=== PATIENT | male | born 1950 | race Caucasian/White ===

== ENCOUNTER 2020-07-31 20:26 | Inpatient (IN) ==
[2020-08-01] MEDS ORDERED: Naloxone 0.4 MG/ML INJ IVP PRN (01:34)
[2020-08-01] MEDS ORDERED: Ondansetron 4 MG/2 ML VIAL IVP PRN (01:34)
[2020-08-01] MEDS ORDERED: 0.9 % Sodium Chloride 1,000 ML IVC SCH (01:45)
[2020-08-01 03:17] LABS: Basophils % 0.1 %; Hematocrit 43.3 % (37.5-50.1); Hemoglobin 13.3 g/dL (12.9-16.9); Immature Granulocytes % 0.9 % (0-4); Lymphocytes # 0.3 K/mcL (0.6-4.6); Lymphocytes % 1.1 %; Mean Corpuscular HGB Conc 30.7 g/dL (31.6-35.5); Mean Corpuscular Hemoglobin 29.9 pg (28.0-33.3); Mean Corpuscular Volume 97.3 fL (83.0-100.0); Mean Platelet Volume 9.8 fL (9.4-12.4); Monocytes # 0.2 K/mcL (0.0-1.3); Monocytes % 0.8 %; Platelet Count 124 K/mcL (140-400); Red Blood Count 4.45 M/mcL (4.19-5.50); Red Cell Distribution Width 13.4 % (11.5-14.5); Segmented Neutrophils % 97.1 %; White Blood Count 23.1 K/mcL (4.3-11.1)
[2020-08-01 03:22] LABS: Neutrophils # 22.4 K/mcL (1.6-8.9)
[2020-08-01 03:24] LABS: INR 1.3; Prothrombin Time 14.4 Seconds (9.4-12.1)
[2020-08-01 03:27] LABS: Activated Partial Thrombo Time 25.5 Seconds (26.0-36.0)
[2020-08-01 03:32] LABS: Albumin 3.5 g/dL (3.5-5.7); Albumin/Globulin Ratio 1.5 (1.1-2.2); Bilirubin,Total 1.3 mg/dL (0.3-1.0); Calcium 7.6 mg/dL (8.6-10.3); Globulin 2.4 g/dL (2.4-3.5); Potassium 5.2 mEq/L (3.5-5.1); Total Protein 5.9 g/dL (6.4-8.9); Troponin I 0.03 ng/mL (< 0.04)
[2020-08-01 03:44] LABS: Thyroid Stimulating Hormone 1.203 mcIU/mL (0.340-5.600)
[2020-08-01 04:03] LABS: Platelet Estimate Normal (Normal)
[2020-08-01] MEDS ORDERED: Azithromycin 500 MG in 0.9 % Sodium Chloride 250 ML IVPB SCH (05:00)
[2020-08-01 06:52] LABS: Bilirubin,Urine Negative (Negative); Blood,Urine Trace (Negative); Clarity,Urine Clear (Clear); Color,Urine Yellow (Yellow); Glucose,Urine (UA) Normal (Normal); Ketones,Urine Negative (Negative); Leukocyte Esterase,Urine Negative (Negative); Mucus,Urine Few per lpf (None-Few); Nitrite,Urine Negative (Negative); PH,Urine 5.5 pH Units (5.0-8.0); Protein,Urine Trace mg/dL (Neg-Trace); RBC,Urine 0-3 per hpf (0-3); Specific Gravity,Urine 1.029 (1.010-1.025); Urobilinogen,Urine Normal (Normal); WBC,Urine 0-3 per hpf (0-3)
[2020-08-01] MEDS: Ipratropium/Albuterol Neb 3 ML IH SCH ×4 (07:36→20:13)
[2020-08-01] MEDS ORDERED: Piperacillin/Tazobactam 3.375 GM in 0.9 % Sodium Chloride Mini Bag 100 ML IVPB SCH (08:00)
[2020-08-01 11:43] LABS: Adenovirus F 40/41 PCR Not detected (Not detect); Astrovirus PCR Not detected (Not detect); Campylobacter by PCR Not detected (Not detect); Cryptosporidium by PCR Not detected (Not detect); Cyclospora cayetanensis PCR Not detected (Not detect); E. coli O157 by PCR Not detected (Not detect); Entamoeba histolytica PCR Not detected (Not detect); Enteroaggregative E.coli(EAEC) Not detected (Not detect); Enteropathogenic E.coli(EPEC) Not detected (Not detect); Enterotoxigenic E.coli (ETEC) Not detected (Not detect); Giardia lamblia PCR Not detected (Not detect); Norovirus GI/GII PCR DETECTED (Not detect); Plesiomonas shigelloides PCR Not detected (Not detect); Rotavirus A PCR Not detected (Not detect); Salmonella PCR Not detected (Not detect); Sapovirus PCR Not detected (Not detect); Shig/EnteroinvasiveE coli EIEC Not detected (Not detect); Shigalike tox-prod E coli STEC Not detected (Not detect); Vibrio PCR Not detected (Not detect); Vibrio cholerae PCR Not detected (Not detect); Yersinia enterocolitica PCR Not detected (Not detect)
[2020-08-01 11:44] LABS: C.difficile Toxin A/B Gene PCR DETECTED (Not detect)
[2020-08-01] MEDS ORDERED: Ringers Solution, Lactated 1,000 ML IVC ONE (11:51)
[2020-08-01] MEDS ORDERED: Vancomycin Oral Soln 125 MG/2.5 ML UDC PO SCH (11:52)
[2020-08-01] MEDS ORDERED: Ringers Solution, Lactated 1,000 ML IVC SCH (12:00)
[2020-08-01] MEDS ORDERED: MethylPREDNISolone 40 MG/ML VIAL IVP SCH (12:00)
[2020-08-01 12:20] LABS: Adenovirus Not Detected (Not Detect); Bordetella Pertussis Not Detected (Not Detect); Chlamydophila pneumoniae Not Detected (Not Detect); Coronavirus 229E Not Detected (Not Detect); Coronavirus HKU1 Not Detected (Not Detect); Coronavirus NL63 Not Detected (Not Detect); Coronavirus OC43 Not Detected (Not Detect); Human Metapneumovirus Not Detected (Not Detect); Human Rhinovirus/Enterovirus Not Detected (Not Detect); Influenza A Subtype 2009 H1 Not Detected (Not Detect); Influenza B Not Detected (Not Detect); Mycoplasma pneumoniae Not Detected (Not Detect); Parainfluenza Virus 1 Not Detected (Not Detect); Parainfluenza Virus 2 Not Detected (Not Detect); Parainfluenza Virus 3 Not Detected (Not Detect); Parainfluenza Virus 4 Not Detected (Not Detect); Respiratory Syncytial Virus Not Detected (Not Detect); SARS-CoV-2 Not Detected (Not Detect)
[2020-08-01] MEDS ORDERED: *HR* OxyCODONE/APAP 5/325 TABLET PO ONE (12:58)
[2020-08-01] MEDS: Vancomycin Oral Soln 125 MG/2.5 ML UDC PO SCH ×3 (13:02→21:25)
[2020-08-01] MEDS: Pantoprazole 40 MG VIAL IVP SCH (13:42)
[2020-08-01] MEDS ORDERED: Metoprolol XL (24 HR) Succ 25 MG TAB.ER.24H PO ONE (15:13)
[2020-08-01] MEDS: *HR* Metoprolol 5 MG/5 ML VIAL IVP PRN (16:48)
[2020-08-01] MEDS ORDERED: Apixaban 5 MG TABLET PO ONE (17:00)
[2020-08-01] MEDS ORDERED: Perflutren Lipid Microsphere 1.3 ML in 0.9 % Sodium Chloride 8.7 ML IVP PRN (17:37)
[2020-08-01] MEDS: Budesonide/Formoterol 160/4.5 1 PUFF INH IH SCH (20:13)
[2020-08-01] MEDS: MethylPREDNISolone 40 MG/ML VIAL IVP SCH (21:24)
[2020-08-01] MEDS: Acetaminophen 325 MG TABLET PO PRN (21:25)
[2020-08-01] MEDS: Metoprolol XL (24 HR) Succ 50 MG TAB.ER.24H PO SCH (21:25)
[2020-08-01] MEDS: Mirtazapine 15 MG TABLET PO SCH (21:25)
[2020-08-02] MEDS: Levalbuterol Neb 1.25 MG/3 ML IH SCH ×7 (00:02→23:25)
[2020-08-02] MEDS ORDERED: *HR* Heparin 5,000 UNIT/ML VIAL IVP PRN (05:10)
[2020-08-02] MEDS ORDERED: Heparin 25,000UNIT/250ML 1/2NS 25,000 UNIT/250 ML IV.SOLN IVC SCH (05:15)
[2020-08-02] MEDS: MethylPREDNISolone 40 MG/ML VIAL IVP SCH ×2 (06:37→14:46)
[2020-08-02 06:40] LABS: INR 1.4; Prothrombin Time 15.7 Seconds (9.4-12.1)
[2020-08-02 06:43] LABS: Activated Partial Thrombo Time 24.9 Seconds (26.0-36.0)
[2020-08-02] MEDS: Heparin 25,000UNIT/250ML 1/2NS 25,000 UNIT/250 ML IV.SOLN IVC SCH (06:46)
[2020-08-02] MEDS: Budesonide/Formoterol 160/4.5 1 PUFF INH IH SCH ×2 (07:31→19:26)
[2020-08-02 08:35] LABS: Basophils % 0.1 %; Hematocrit 39.3 % (37.5-50.1); Hemoglobin 12.6 g/dL (12.9-16.9); Immature Granulocytes % 0.5 % (0-4); Lymphocytes # 0.3 K/mcL (0.6-4.6); Lymphocytes % 1.9 %; Mean Corpuscular HGB Conc 32.1 g/dL (31.6-35.5); Mean Corpuscular Hemoglobin 30.4 pg (28.0-33.3); Mean Corpuscular Volume 94.7 fL (83.0-100.0); Mean Platelet Volume 9.8 fL (9.4-12.4); Monocytes # 0.4 K/mcL (0.0-1.3); Monocytes % 2.5 %; Neutrophils # 15.3 K/mcL (1.6-8.9); Platelet Count 121 K/mcL (140-400); Red Blood Count 4.15 M/mcL (4.19-5.50); Red Cell Distribution Width 13.1 % (11.5-14.5); White Blood Count 16.2 K/mcL (4.3-11.1)
[2020-08-02] MEDS: Metoprolol XL (24 HR) Succ 50 MG TAB.ER.24H PO SCH ×2 (08:39→21:20)
[2020-08-02] MEDS: Pantoprazole 40 MG VIAL IVP SCH (08:40)
[2020-08-02] MEDS: Vancomycin Oral Soln 125 MG/2.5 ML UDC PO SCH ×4 (08:40→21:40)
[2020-08-02] MEDS ORDERED: Apixaban 5 MG TABLET PO SCH (09:00)
[2020-08-02 09:06] LABS: Estimated Average Glucose 131 mg/dl; Hemoglobin A1C 6.2 %
[2020-08-02 09:40] LABS: BUN/Creatinine Ratio 25 (6-26); Blood Urea Nitrogen 23 mg/dL (8-23); Calcium 8.3 mg/dL (8.6-10.3); Carbon Dioxide 26 mEq/L (23-29); Chloride 110 mEq/L (98-107); Glucose 181 mg/dL (70-105); Magnesium 2.4 mg/dL (1.6-2.6); Osmolality,Calculated 306 (280-300); Potassium 3.9 mEq/L (3.5-5.1); Sodium 144 mEq/L (136-145); eGFR For African Americans > 60 (> 60); eGFR For Non-African Americans > 60 (> 60)
[2020-08-02] MEDS: *HR* Heparin 5,000 UNIT/ML VIAL IVP PRN (14:45)
[2020-08-02] MEDS: Aspirin Enteric Coated 81 MG Tablet PO SCH (14:48)
[2020-08-02] MEDS ORDERED: VITAMIN D3 PO PRN (17:32)
[2020-08-02] MEDS ORDERED: CALCIUM CITRATE PO PRN (17:32)
[2020-08-02] MEDS: Famotidine 20 MG TABLET PO SCH (21:20)
[2020-08-02] MEDS: Mirtazapine 15 MG TABLET PO SCH (21:20)
[2020-08-02] MEDS: Acetaminophen 325 MG TABLET PO PRN (21:39)
[2020-08-03] MEDS: Levalbuterol Neb 1.25 MG/3 ML IH SCH ×6 (03:39→23:48)
[2020-08-03 05:19] LABS: Hemoglobin 11.5 g/dL (12.9-16.9); Immature Granulocytes % 0.6 % (0-4); Lymphocytes # 0.3 K/mcL (0.6-4.6); Mean Corpuscular HGB Conc 31.9 g/dL (31.6-35.5); Monocytes # 0.5 K/mcL (0.0-1.3); Monocytes % 4.7 %; Neutrophils # 9.8 K/mcL (1.6-8.9); Platelet Count 100 K/mcL (140-400); Red Blood Count 3.83 M/mcL (4.19-5.50); Red Cell Distribution Width 13.1 % (11.5-14.5); Segmented Neutrophils % 91.7 %; White Blood Count 10.7 K/mcL (4.3-11.1)
[2020-08-03 05:26] LABS: BUN/Creatinine Ratio 26 (6-26); Blood Urea Nitrogen 22 mg/dL (8-23); Carbon Dioxide 30 mEq/L (23-29); Chloride 110 mEq/L (98-107); Glucose 181 mg/dL (70-105); Magnesium 2.4 mg/dL (1.6-2.6); Osmolality,Calculated 304 (280-300); Potassium 3.7 mEq/L (3.5-5.1); Sodium 143 mEq/L (136-145); eGFR For African Americans > 60 (> 60); eGFR For Non-African Americans > 60 (> 60)
[2020-08-03] MEDS: *HR* Metoprolol 5 MG/5 ML VIAL IVP PRN (05:54)
[2020-08-03] MEDS: Budesonide/Formoterol 160/4.5 1 PUFF INH IH SCH ×2 (07:10→19:38)
[2020-08-03] MEDS: Ascorbic Acid 500 MG TABLET PO SCH (08:45)
[2020-08-03] MEDS: Metoprolol XL (24 HR) Succ 50 MG TAB.ER.24H PO SCH ×2 (08:45→21:09)
[2020-08-03] MEDS: Famotidine 20 MG TABLET PO SCH ×2 (08:45→21:09)
[2020-08-03] MEDS: Multivit/Ca/Min/Fe/FA 1 TAB TABLET PO SCH (08:45)
[2020-08-03] MEDS: predniSONE 20 MG TABLET PO SCH (08:45)
[2020-08-03] MEDS: Vancomycin Oral Soln 125 MG/2.5 ML UDC PO SCH ×4 (08:45→21:10)
[2020-08-03] MEDS: Aspirin Enteric Coated 81 MG Tablet PO SCH (08:45)
[2020-08-03] MEDS: Heparin 25,000UNIT/250ML 1/2NS 25,000 UNIT/250 ML IV.SOLN IVC SCH (08:48)
[2020-08-03] MEDS: *HR* Heparin 5,000 UNIT/ML VIAL IVP PRN (11:26)
[2020-08-03] MEDS: Acetaminophen 325 MG TABLET PO PRN (17:51)
[2020-08-03] MEDS: Mirtazapine 15 MG TABLET PO SCH (21:09)
[2020-08-03] MEDS ORDERED: Melatonin 3 MG TABLET PO SCH (23:45)
[2020-08-04 03:35] LABS: Mean Corpuscular Volume 93.8 fL (83.0-100.0); Red Cell Distribution Width 12.9 % (11.5-14.5)
[2020-08-04 03:36] LABS: Hematocrit 34.8 % (37.5-50.1); Immature Granulocytes % 0.4 % (0-4); Immature Platelets 2.7 % (1.1-6.1); Lymphocytes # 0.8 K/mcL (0.6-4.6); Lymphocytes % 10.7 %; Mean Corpuscular HGB Conc 31.6 g/dL (31.6-35.5); Mean Corpuscular Hemoglobin 29.6 pg (28.0-33.3); Monocytes # 0.6 K/mcL (0.0-1.3); Monocytes % 8.3 %; Neutrophils # 5.6 K/mcL (1.6-8.9); Red Blood Count 3.71 M/mcL (4.19-5.50); Segmented Neutrophils % 80.6 %
[2020-08-04 03:40] LABS: Platelet Count 98 K/mcL (140-400)
[2020-08-04 03:57] LABS: BUN/Creatinine Ratio 28 (6-26); Blood Urea Nitrogen 20 mg/dL (8-23); Carbon Dioxide 28 mEq/L (23-29); Chloride 109 mEq/L (98-107); Glucose 155 mg/dL (70-105); Magnesium 2.4 mg/dL (1.6-2.6); Osmolality,Calculated 302 (280-300); Potassium 3.6 mEq/L (3.5-5.1); Sodium 143 mEq/L (136-145); eGFR For African Americans > 60 (> 60); eGFR For Non-African Americans > 60 (> 60)
[2020-08-04] MEDS: Levalbuterol Neb 1.25 MG/3 ML IH SCH ×3 (04:17→10:58)
[2020-08-04] MEDS: Budesonide/Formoterol 160/4.5 1 PUFF INH IH SCH (07:13)
[2020-08-04] MEDS: Aspirin Enteric Coated 81 MG Tablet PO SCH (08:23)
[2020-08-04] MEDS: predniSONE 20 MG TABLET PO SCH (08:24)
[2020-08-04] MEDS: Famotidine 20 MG TABLET PO SCH (08:24)
[2020-08-04] MEDS: Multivit/Ca/Min/Fe/FA 1 TAB TABLET PO SCH (08:25)
[2020-08-04] MEDS: Metoprolol XL (24 HR) Succ 50 MG TAB.ER.24H PO SCH (08:26)
[2020-08-04] MEDS: Ascorbic Acid 500 MG TABLET PO SCH (08:27)
[2020-08-04] MEDS: Vancomycin Oral Soln 125 MG/2.5 ML UDC PO SCH ×2 (08:28→14:01)
[2020-08-04 10:55] VITALS: BP 150/80
== END 2020-08-04 15:49 | disposition home health service (06) | DRG 871 ==
LOC: 2NENU → SUATTDRO 08-01 00:46
PROVIDERS: ADMIT Internal Medicine; ATTEND Pharmacist

== ENCOUNTER 2021-09-23 18:35 | Inpatient (IN) ==
[2021-09-23] MEDS ORDERED: Naloxone 0.4 MG/ML INJ IVP PRN (22:52)
[2021-09-23] MEDS ORDERED: Melatonin 3 MG TABLET PO PRN (22:52)
[2021-09-23] MEDS ORDERED: Ondansetron 4 MG/2 ML VIAL IVP PRN (22:52)
[2021-09-23] MEDS ORDERED: *HR* Heparin 5,000 UNIT/ML VIAL IVP PRN ×2 (23:04)
[2021-09-23] MEDS ORDERED: Heparin 25,000UNIT/250ML 1/2NS 25,000 UNIT/250 ML IV.SOLN IVC SCH (23:15)
[2021-09-23 23:29] LABS: Hematocrit 41.2 % (37.5-50.1); Hemoglobin 13.1 g/dL (12.9-16.9); Mean Corpuscular HGB Conc 31.8 g/dL (31.6-35.5); Mean Corpuscular Hemoglobin 28.6 pg (28.0-33.3); Mean Platelet Volume 10.1 fL (9.4-12.4); Platelet Count 128 K/mcL (140-400); Red Blood Count 4.58 M/mcL (4.19-5.50); Red Cell Distribution Width 13.2 % (11.5-14.5)
[2021-09-23 23:38] LABS: Heparin anti-factor XA UFH 0.72 IU/mL (0.30-0.70); INR 1.3; Prothrombin Time 14.1 Seconds (9.4-12.1)
[2021-09-23 23:41] LABS: Activated Partial Thrombo Time 48.5 Seconds (26.0-36.0)
[2021-09-24] MEDS: Heparin 25,000UNIT/250ML 1/2NS 25,000 UNIT/250 ML IV.SOLN IVC SCH ×2 (00:11→00:35)
[2021-09-24] MEDS ORDERED: tiZANidine 4 MG TABLET PO ONE (00:24)
[2021-09-24] MEDS: Acetaminophen 325 MG TABLET PO PRN ×3 (03:52→20:15)
[2021-09-24 05:54] LABS: Basophils % 0.8 %; Eosinophils # 0.2 K/mcL (0.0-0.6); Eosinophils % 3.1 %; Hematocrit 38.4 % (37.5-50.1); Immature Granulocytes % 0.4 % (0-4); Lymphocytes # 1.5 K/mcL (0.6-4.6); Lymphocytes % 29.2 %; Mean Corpuscular HGB Conc 31.3 g/dL (31.6-35.5); Mean Corpuscular Volume 89.5 fL (83.0-100.0); Mean Platelet Volume 10.5 fL (9.4-12.4); Monocytes # 0.8 K/mcL (0.0-1.3); Monocytes % 15.5 %; Neutrophils # 2.7 K/mcL (1.6-8.9); Platelet Count 126 K/mcL (140-400); Red Blood Count 4.29 M/mcL (4.19-5.50); Red Cell Distribution Width 13.1 % (11.5-14.5); White Blood Count 5.2 K/mcL (4.3-11.1)
[2021-09-24 06:21] LABS: Alanine Aminotransferase 18 Units/L (7-52); Albumin 3.6 g/dL (3.5-5.7); Albumin/Globulin Ratio 1.4 (1.1-2.2); Alkaline Phosphatase 82 Units/L (34-104); Aspartate Amino Transferase 41 Units/L (13-39); BUN/Creatinine Ratio 8 (6-26); Bilirubin,Total 0.9 mg/dL (0.3-1.0); Blood Urea Nitrogen 9 mg/dL (8-23); Calcium 9.1 mg/dL (8.6-10.3); Carbon Dioxide 36 mEq/L (23-29); Chloride 98 mEq/L (98-107); Globulin 2.5 g/dL (2.4-3.5); Glucose 110 mg/dL (70-105); Osmolality,Calculated 287 (280-300); Phosphorous 4.1 mg/dL (2.7-4.5); Potassium 4.1 mEq/L (3.5-5.1); Sodium 139 mEq/L (136-145); Total Protein 6.1 g/dL (6.4-8.9); eGFR For African Americans > 60 (> 60); eGFR For Non-African Americans > 60 (> 60)
[2021-09-24] MEDS ORDERED: Azithromycin 250 MG TABLET PO SCH (08:30)
[2021-09-24] MEDS ORDERED: NON-FORMULARY MEDICATION 1 EACH EACH (Ipratropium/Albuterol Sulfate 120 PUFF Inhaler) IH SCH (08:30)
[2021-09-24] MEDS: (Roflumilast [Daliresp] 500 MCG Tablet) PO SCH (08:55)
[2021-09-24] MEDS: Metoprolol XL (24 HR) Succ 50 MG TAB.ER.24H PO SCH (08:55)
[2021-09-24] MEDS ORDERED: predniSONE 5 MG TABLET PO SCH (09:00)
[2021-09-24] MEDS: Budesonide/Formoterol 160/4.5 1 PUFF INH IH SCH ×2 (09:30→20:51)
[2021-09-24] MEDS ORDERED: Levalbuterol Neb 0.63 MG/3 ML IH PRN (10:00)
[2021-09-24] MEDS ORDERED: Ipratropium Neb 0.5 MG NEBULIZER IH PRN (10:00)
[2021-09-24] MEDS: Ipratropium/Albuterol Neb 3 ML IH SCH ×4 (11:33→23:32)
[2021-09-24] MEDS: Morphine Sulfate 2 MG/ML SYRINGE IVP PRN ×2 (11:35→20:30)
[2021-09-24] MEDS: Aspirin Enteric Coated 81 MG Tablet PO SCH (11:36)
[2021-09-24] MEDS ORDERED: *HR* Midazolam HCl 2 MG/2 ML VIAL ONE (13:00)
[2021-09-24] MEDS ORDERED: 0.9 % Sodium Chloride 2,000 ML ONE (13:00)
[2021-09-24] MEDS ORDERED: Iopamidol - 370 200 ML INFUS..BTL ONE (13:00)
[2021-09-24] MEDS ORDERED: Heparin 1,000 UNITS/500 mL 500 ML ONE (13:00)
[2021-09-24] MEDS ORDERED: *HR* Heparin 10,000 UNIT/10 ML VIAL ONE ×2 (13:00→13:30)
[2021-09-24] MEDS ORDERED: *HR* FentaNYL (PF) 100 MCG/2 ML VIAL ONE (13:00)
[2021-09-24] MEDS ORDERED: Nitroglycerin 1,000 MCG/5 ML VIAL IV ONE (13:01)
[2021-09-24] MEDS ORDERED: Mirtazapine 15 MG TABLET PO SCH (21:00)
[2021-09-24] MEDS: Ranolazine 500 MG TAB.ER.12H PO SCH (21:46)
[2021-09-25 03:08] LABS: Basophils % 0.7 %; Immature Granulocytes % 0.2 % (0-4)
[2021-09-25 03:10] LABS: Eosinophils # 0.1 K/mcL (0.0-0.6); Hemoglobin 11.7 g/dL (12.9-16.9); Lymphocytes % 22.2 %; Mean Corpuscular HGB Conc 31.6 g/dL (31.6-35.5); Mean Corpuscular Hemoglobin 28.5 pg (28.0-33.3); Mean Corpuscular Volume 90.2 fL (83.0-100.0); Mean Platelet Volume 10.2 fL (9.4-12.4); Monocytes # 0.7 K/mcL (0.0-1.3); Monocytes % 16.1 %; Neutrophils # 2.7 K/mcL (1.6-8.9); Platelet Count 117 K/mcL (140-400); Red Cell Distribution Width 12.8 % (11.5-14.5); Segmented Neutrophils % 58.8 %; White Blood Count 4.6 K/mcL (4.3-11.1)
[2021-09-25 03:15] LABS: Chol/HDL Ratio 5.2 (0-4.9)
[2021-09-25 03:17] LABS: BUN/Creatinine Ratio 11 (6-26); Blood Urea Nitrogen 12 mg/dL (8-23); Calcium 8.9 mg/dL (8.6-10.3); Carbon Dioxide 35 mEq/L (23-29); Chloride 99 mEq/L (98-107); Glucose 128 mg/dL (70-105); Magnesium 2.1 mg/dL (1.6-2.6); Osmolality,Calculated 287 (280-300); Phosphorous 3.9 mg/dL (2.7-4.5); Potassium 3.8 mEq/L (3.5-5.1); Sodium 138 mEq/L (136-145); eGFR For African Americans > 60 (> 60); eGFR For Non-African Americans > 60 (> 60)
[2021-09-25] MEDS: Ipratropium/Albuterol Neb 3 ML IH SCH ×3 (03:21→11:08)
[2021-09-25 03:56] LABS: Estimated Average Glucose 134 mg/dl; Hemoglobin A1C 6.3 %
[2021-09-25] MEDS: Budesonide/Formoterol 160/4.5 1 PUFF INH IH SCH (07:57)
[2021-09-25] MEDS: Aspirin Enteric Coated 81 MG Tablet PO SCH (08:26)
[2021-09-25] MEDS: Ranolazine 500 MG TAB.ER.12H PO SCH (08:26)
[2021-09-25] MEDS: Metoprolol XL (24 HR) Succ 50 MG TAB.ER.24H PO SCH (08:26)
[2021-09-25] MEDS: Morphine Sulfate 2 MG/ML SYRINGE IVP PRN (08:43)
[2021-09-25] MEDS: (Roflumilast [Daliresp] 500 MCG Tablet) PO SCH (09:49)
[2021-09-25 11:28] VITALS: O2SAT 98
[2021-09-25 13:03] VITALS: BP 147/67; PULSE 88; TEMP 97.9
[2021-09-25] MEDS ORDERED: Apixaban 5 MG TABLET PO SCH (15:00)
== END 2021-09-25 15:30 | disposition home or self-care (01) | DRG 247 ==
LOC: 3NENU → SUATTDRO 22:13
PROVIDERS: ADMIT Internal Medicine; ATTEND Internal Medicine